=== PATIENT | female | born 1990 | race Two or more races ===

== ENCOUNTER 2022-09-05 14:07 | Outpatient (REF) | payer OTHER, SELFPAY | END 2022-09-05 14:08 | disposition home or self-care (01) | LOC: HO.MDS 14:07 | PROVIDERS: Visit Provider Internal Medicine | DX: O99.019 Anemia complicating pregnancy, unspecified trimester (principal); D50.9 Iron deficiency anemia, unspecified; Z3A.00 Weeks of gestation of pregnancy not specified | CPT/HCPCS: 96365; J2916 ==

== ENCOUNTER 2022-09-08 11:26 | Outpatient (REF) | payer OTHER, SELFPAY | END 2022-09-08 11:27 | disposition home or self-care (01) | LOC: HO.MDS 11:26 | PROVIDERS: Visit Provider Internal Medicine | DX: O99.019 Anemia complicating pregnancy, unspecified trimester (principal); D50.9 Iron deficiency anemia, unspecified; Z3A.00 Weeks of gestation of pregnancy not specified | CPT/HCPCS: 96365; J2916 ==